=== PATIENT | male | born 1970 | race Caucasian/White ===

== ENCOUNTER 2017-03-24 05:43 | Emergency (ER) | payer MEDICAID ==
[~2017-03-24] VITALS: Ht 170.2 cm; Wt 75.7 kg
[~2017-03-24 05:43] MED LIST: IBUP-1482 PO
--- NOTE | 2017-03-24 05:59 | NUR ---
Pt c/o swelling at base of his right thumb, states he thought it was a spider bite at first, about 3 days ago, pain 8.5/10. Pt denies CP, SOB, dizziness, n/v, no other complaints, minor distress noted.
[2017-03-24 07:20] VITALS: BP 131/79
== END 2017-03-24 07:00 | disposition home or self-care (01) ==
LOC: ER 05:43
DX: L02.511 Cutaneous abscess of right hand (principal); I10 Essential (primary) hypertension; F19.10 Other psychoactive substance abuse, uncomplicated; Z88.0 Allergy status to penicillin
CPT/HCPCS: 10060; 99283; A4606; J3490 ×2; Z7610

== ENCOUNTER 2017-11-14 13:23 | Emergency (ER) | payer OTHER ==
[~2017-11-14] VITALS: Ht 170.2 cm; Wt 74.4 kg
[~2017-11-14 13:23] MED LIST changes: -IBUP-1482 PO; +IBUP-1957 PO
[2017-11-14 13:25] VITALS: BP 133/91
[2017-11-14] MEDS ORDERED: HYDROCODONE/APAP 5/325MG 1 EACH TABLET PO ONE (15:00)
--- NOTE | 2017-11-14 15:10 | NUR ---
Patient eloped from facility. ER MD notified.
== END 2017-11-14 16:05 | disposition left against medical advice (07) ==
LOC: ER 13:34
DX: S69.92XA Unspecified injury of left wrist, hand and finger(s), initial encounter (principal); I10 Essential (primary) hypertension; Z88.0 Allergy status to penicillin; X18.XXXA Contact with other hot metals, initial encounter; Y93.89 Activity, other specified; Y92.89 Other specified places as the place of occurrence of the external cause; Y99.0 Civilian activity done for income or pay
CPT/HCPCS: 73140-TC; A4606; Z7610

== ENCOUNTER 2018-06-17 10:17 | Emergency (ER) | payer OTHER, MEDICAID ==
[~2018-06-17] VITALS: Ht 170.2 cm; Wt 73.0 kg
[2018-06-17 10:25] VITALS: BP 135/71
[2018-06-17] MEDS ORDERED: predniSONE 10 MG TABLET PO ONE (11:00)
[2018-06-17] MEDS ORDERED: diphenhydrAMINE HCL 50 MG CAPSULE PO ONE (11:00)
[2018-06-17] MEDS ORDERED: predniSONE 20 MG TABLET ONE (11:11)
[2018-06-17] MEDS ORDERED: diphenhydrAMINE HCL 50 MG CAPSULE ONE (11:11)
== END 2018-06-17 11:34 ==
LOC: ER 10:18
DX: R21 Rash and other nonspecific skin eruption (principal); I10 Essential (primary) hypertension; F19.10 Other psychoactive substance abuse, uncomplicated; Z88.0 Allergy status to penicillin
CPT/HCPCS: 99283; A4606; J7512; Q0163; Z7610

== ENCOUNTER 2018-08-26 08:48 | Emergency (ER) | payer OTHER ==
[~2018-08-26] VITALS: Ht 167.6 cm; Wt 72.6 kg
[2018-08-26 08:52] VITALS: BP 145/81
--- NOTE | 2018-08-26 08:55 | NUR ---
SEEN AND EXAMINED BY DR. MADSEN.
[2018-08-26] MEDS ORDERED: KETOROLAC TROMETHAMINE INJ 30 MG/ML VIAL ONE (08:59)
[2018-08-26] MEDS ORDERED: ONDANSETRON 4 MG TAB.RAPDIS SL ONE (09:00)
[2018-08-26] MEDS ORDERED: KETOROLAC TROMETHAMINE INJ 60 MG/2 ML VIAL IM ONE (09:00)
[2018-08-26] MEDS ORDERED: ONDANSETRON 4 MG TAB.RAPDIS ONE (09:00)
--- NOTE | 2018-08-26 09:05 | NUR ---
URINAL GIVEN BUT UNABLE TO PROVIDE URINE SPECIMEN.
--- NOTE | 2018-08-26 09:05 | NUR ---
Tamara lomas in ED - 08/26/18 at 0906 by SO patient came in via ambulatory accompanied by PD from [facility] for clearance. On room air, breathing evenly and unlabored. kept comfortable, will continue to monitor accordingly.
[2018-08-26 09:43] LABS: APPEARANCE,URINE Clear (CLEAR); BILIRUBIN,URINE Negative (NEGATIVE); BLOOD, URINE Negative Ery/uL (NEGATIVE); COLOR,URINE Yellow (YELLOW); KETONES,URINE Negative (NEGATIVE); LEUKOCYTE ESTERASE ,URINE Negative (NEGATIVE); NITRITE, URINE Negative (NEGATIVE); PH,URINE 6.5 (5.0-8.0); PROTEIN,URINE Negative (NEGATIVE); UGLUCOSE Negative (NEGATIVE)
--- NOTE | 2018-08-26 10:01 | NUR ---
Patient discharged in custody in stable condition. Written and verbal after care instructions given. Patient verbalizes understanding of instruction.
== END 2018-08-26 10:03 ==
LOC: ER 08:52
DX: R10.12 Left upper quadrant pain (principal); R10.11 Right upper quadrant pain; R10.31 Right lower quadrant pain; R10.32 Left lower quadrant pain; I25.2 Old myocardial infarction; I10 Essential (primary) hypertension; Z88.0 Allergy status to penicillin
CPT/HCPCS: 81001; 96372; 99283; A4606; J1885; Q0162; 81000-TC

== ENCOUNTER 2019-01-27 15:07 | Emergency (ER) | payer OTHER ==
[~2019-01-27] VITALS: Ht 170.2 cm; Wt 83.9 kg
[2019-01-27 15:33] VITALS: BP 140/91
[2019-01-27] MEDS ORDERED: IBUPROFEN 600 MG TABLET PO ONE ×2 (16:00→16:07)
--- NOTE | 2019-01-27 16:09 | NUR ---
RADIOLOGY AT BEDSIDE FOR R HAND XRAY.
== END 2019-01-27 17:07 | disposition home or self-care (01) ==
LOC: ER 15:11
DX: M79.641 Pain in right hand (principal); I10 Essential (primary) hypertension; I25.2 Old myocardial infarction; Z88.0 Allergy status to penicillin; V19.88XA Pedal cyclist (driver) (passenger) injured in other specified transport accidents, initial encounter; Y93.55 Activity, bike riding; Y92.89 Other specified places as the place of occurrence of the external cause; Y99.8 Other external cause status
CPT/HCPCS: 73130-TC

== ENCOUNTER 2019-01-29 10:36 | Emergency (ER) | payer MEDICAID, OTHER ==
[~2019-01-29] VITALS: Ht 177.8 cm; Wt 78.9 kg
--- NOTE | 2019-01-29 10:42 | NUR ---
PT BIB SELF C/O R HAND SWELLING FOR 3 DAYS, +ABSCESS, PT IS AAOX4, NOT IN RESPIRATORY DISTRESS, HOOKED TO MONITOR, KEPT RESTED AND COMFORTABLE, WILL CONTINUE TO MONITOR.
--- NOTE | 2019-01-29 10:49 | NUR ---
AT BEDSIDE FOR EVAL.
[2019-01-29] MEDS ORDERED: VANCOMYCIN 1 GM in IV D5W 250 ML IV ONE (11:00)
[2019-01-29] MEDS ORDERED: LEVOFLOXACIN 750 MG /D5W 150ML 150 ML IV ONE (11:00)
--- NOTE | 2019-01-29 11:00 | NUR ---
IV LINE ESTABLISHED, BLOOD DRAWNED AND SENT TO LAB.
[2019-01-29 11:06] LABS: BASOPHILS # (AUTO) 0.1 /CMM (0.0-0.2); BASOPHILS % (AUTO) 0.7 % (0.0-2.0); EOSINOPHILS % (AUTO) 3.6 % (0.0-6.0); HEMATOCRIT 43 % (39-51); HEMOGLOBIN 14.2 g/dL (13.5-17.5); LYMPHOCYTES # (AUTO) 1.3 /CMM (0.8-4.8); LYMPHOCYTES % (AUTO) 17.1 % (20.0-44.0); MEAN CORPUSCULAR HGB CONC 33 g/dl (31.0-36.0); MEAN CORPUSCULAR VOLUME 87 fL (80-96); MONOCYTES # (AUTO) 0.9 /CMM (0.1-1.30); MONOCYTES % (AUTO) 11.3 % (2.0-12.0); NEUTROPHILS # (AUTO) 5.1 /CMM (1.8-8.9); NEUTROPHILS % (AUTO) 67.3 % (43.0-81.0); PLATELET COUNT (AUTO) 180 /CMM (150-450); RED BLOOD CELL COUNT(AUTO) 4.92 MIL/uL (4.5-6.0); WHITE BLOOD COUNT (AUTO) 7.6 K/uL (4.3-11.0)
--- NOTE | 2019-01-29 11:10 | NUR ---
NAIL MAKER AT BEDSIDE FOR XRAY.
[2019-01-29 11:12] LABS: CALCIUM, SERUM 8.5 mg/dL (8.5-10.1); CARBON DIOXIDE 28 mmol/L (21-32); CHLORIDE 104 mmol/L (98-107); CREATININE 0.9 mg/dL (0.6-1.3); GLUCOSE 129 mg/dL (74-106); POTASSIUM 3.8 mmol/L (3.5-5.1); SODIUM SERUM 139 mmol/L (136-145); UREA NITROGEN, BLOOD 9 mg/dL (7-18)
[2019-01-29 11:27] LABS: ALANINE AMINOTRANSFERASE 67 U/L (12-78); ALBUMIN 3.1 g/dL (3.4-5.0); ALKALINE PHOSPHATASE 65 U/L (46-116); ASPARTATE AMINOTRANSFERASE 28 U/L (15-37); BILIRUBIN,DIRECT 0.2 mg/dL (0.0-0.2); BILIRUBIN,TOTAL 0.5 mg/dL (0.2-1.0); TOTAL PROTEIN, SERUM 6.6 g/dL (6.4-8.2)
[2019-01-29] MEDS ORDERED: diphenhydrAMINE HCL 50 MG/ML VIAL ONE (11:41)
--- NOTE | 2019-01-29 11:45 | NUR ---
BENADRYL 25MG IVP GIVEN VERBAL ORDERED BY .
--- NOTE | 2019-01-29 12:44 | NUR ---
CALL FROM [facility],NO BED
--- NOTE | 2019-01-29 13:41 | NUR ---
CALLED [facility], NO HAND SURGEON
--- NOTE | 2019-01-29 13:42 | NUR ---
CALLED [facility], NO BEDS
[2019-01-29] MEDS ORDERED: ACETAMINOPHEN ES 500 MG TABLET ONE (13:43)
[2019-01-29] MEDS ORDERED: IBUPROFEN 600 MG TABLET PO ONE (13:43)
--- NOTE | 2019-01-29 13:46 | NUR ---
MOTRIN 600MG AND TYLENOL 1000MG PO GIVEN VERBAL ORDERED BY .
--- NOTE | 2019-01-29 13:54 | NUR ---
CALLED [facility] , FAXED FACE SHEET, MD NOTES, IMAGES, AND LABS. TRANSFER CENTER WILL CALL BACK WITH UP DATE.
--- NOTE | 2019-01-29 14:20 | NUR ---
CALLED [facility], NO BEDS
--- NOTE | 2019-01-29 18:16 | NUR ---
[employer]OTEL FRONT DESK CLERK FOR [facility] ([facility]) CALLED AND STATED THAT THEY ARE AT FULL CAPACITY AND ARE UNABLE TO ACCEPT PT.
--- NOTE | 2019-01-29 19:17 | NUR ---
REPORT GIVEN TO MARRY PERALTA FOR MARGARET, AWAITING INFO FOR PT TRANSFER TO HOSPITAL.
[2019-01-29] MEDS ORDERED: VANCOMYCIN HCL 1.25 GM in IV D5W 260 ML IV ONE (20:00)
[2019-01-29] MEDS ORDERED: VANCOMYCIN HCL 1 GM in IV D5W 260 ML IV ONE (20:30)
[2019-01-29] MEDS ORDERED: VANCOMYCIN 1 GM VIAL ONE (20:39)
[2019-01-29] MEDS ORDERED: KETOROLAC TROMETHAMINE INJ 30 MG/ML VIAL ONE (21:22)
--- NOTE | 2019-01-29 21:22 | NUR ---
VERBAL ORDER FROM ER MD FOR 30MG TORADOL IVP FOR PAIN IN R HAND
--- NOTE | 2019-01-29 22:26 | NUR ---
Patient is resting comfortably in bed with eyes closed. Easily aroused. VSS.
--- NOTE | 2019-01-30 01:37 | NUR ---
CALLED [facility] FOR TRANSFER. NO BEDS AVAILABLE AT THIS TIME
--- NOTE | 2019-01-30 01:39 | NUR ---
CALLED [facility], NO BED AVAILABLE AT THIS TIME
--- NOTE | 2019-01-30 01:42 | NUR ---
CALLED [facility], NO BEDS AVAILABLE AT THIS TIME
--- NOTE | 2019-01-30 01:44 | NUR ---
Patient is resting comfortably in bed with eyes closed. Easily aroused.
--- NOTE | 2019-01-30 03:18 | NUR ---
Patient is resting comfortably in bed with eyes closed. Easily aroused.
[2019-01-30] MEDS ORDERED: KETOROLAC TROMETHAMINE INJ 30 MG/ML VIAL IV ONE ×3 (05:30→09:30)
[2019-01-30] MEDS ORDERED: KETOROLAC TROMETHAMINE INJ 30 MG/ML VIAL ONE ×2 (05:57→08:30)
[2019-01-30] MEDS ORDERED: LEVOFLOXACIN 750 MG /D5W 150ML PIGGYBACK IV ONE (06:30)
[2019-01-30] MEDS ORDERED: VANCOMYCIN HCL 1.25 GM in IV D5W 250 ML IV ONE (07:23)
--- NOTE | 2019-01-30 07:25 | NUR ---
REPORT GIVEN TO MARRY PHAM FOR MARGARET
[2019-01-30] MEDS ORDERED: LEVOFLOXACIN 750 MG /D5W 150ML 750 MG in PREMIX 1 EA IV ONE ×2 (08:00→11:00)
--- NOTE | 2019-01-30 08:35 | NUR ---
PT C/O PAIN. DR HOLM MADE AWARE. VERBAL ORDER FOR TORADOL 30MG IVP. CARRIED OUT.
--- NOTE | 2019-01-30 08:45 | NUR ---
PT NOW AGITATED. WANTS TO LEAVE ED. Patient does not wish to proceed with medical care recommended by Dr. Armstrong. Patient given information related to possible complications, up to and including , which could occur as a result of leaving the hospital at this time. Patient verbalizes understanding of risks involved due to leaving against medical advice. Patient has signed AMA form.
[2019-01-30 09:22] VITALS: BP 142/84
== END 2019-01-30 09:23 | disposition left against medical advice (07) ==
LOC: ER 10:40
DX: M65.841 Other synovitis and tenosynovitis, right hand (principal); I10 Essential (primary) hypertension; F19.10 Other psychoactive substance abuse, uncomplicated; F15.10 Other stimulant abuse, uncomplicated; Z88.0 Allergy status to penicillin
CPT/HCPCS: 36415; 71045; 73130; 80048; 80076; 83605 ×2; 84145; 85025; 85730; 87040 ×2; 93005; 96365; 96366 ×2; 96368; 96375; 96376; 99284; A4216; J1200; J1885 ×3; J1956 ×2; J3370 ×2; J7060 ×2

== ENCOUNTER 2019-01-30 17:58 | Emergency (ER) | payer MEDICAID ==
[~2019-01-30] VITALS: Ht 167.6 cm; Wt 77.1 kg
[2019-01-30 18:07] VITALS: BP 148/93
--- NOTE | 2019-01-30 18:08 | NUR ---
CAME IN FOR "Hand swelling/cellulitis was here yesterday left this am tried to go to [place] but it was packed so I left" TO ER BED 6, HOOKED TO MONITOR, AWAITING MD JANE
--- NOTE | 2019-01-30 18:11 | NUR ---
DR STOVER AT BEDSIDE
[2019-01-30] MEDS ORDERED: IBUPROFEN 400 MG TABLET ONE (18:25)
[2019-01-30] MEDS ORDERED: LIDOCAINE /MPF 1% VIAL 5 ML VIAL ONE (18:25)
[2019-01-30] MEDS ORDERED: CEFTRIAXONE 1 G VIAL ONE (18:25)
[2019-01-30] MEDS ORDERED: HYDROCODONE/APAP 5/325MG 1 EACH TABLET ONE (18:26)
[2019-01-30] MEDS ORDERED: CEFTRIAXONE 1 G VIAL IM ONE (18:30)
[2019-01-30] MEDS ORDERED: IBUPROFEN 400 MG TABLET PO ONE (18:30)
[2019-01-30] MEDS ORDERED: HYDROCODONE/APAP 5/325MG 1 EACH TABLET PO ONE (18:30)
--- NOTE | 2019-01-30 18:47 | NUR ---
Patient does not wish to proceed with medical care recommended by Dr. Forte. Patient given information related to possible complications, up to and including , which could occur as a result of leaving the hospital at this time. Patient verbalizes understanding of risks involved due to leaving against medical advice. Patient has signed AMA form.
== END 2019-01-30 18:54 | disposition left against medical advice (07) ==
LOC: ER 17:58
DX: L03.113 Cellulitis of right upper limb (principal); I10 Essential (primary) hypertension; F19.10 Other psychoactive substance abuse, uncomplicated; Z59.0 Homelessness; Z88.0 Allergy status to penicillin
CPT/HCPCS: 96372; 99283; J0696; J3490

== ENCOUNTER 2020-03-27 16:48 | Emergency (ER) | payer OTHER ==
[~2020-03-27] VITALS: Ht 170.2 cm; Wt 77.1 kg
[2020-03-27 16:53] VITALS: BP 137/72
--- NOTE | 2020-03-27 17:03 | NUR ---
FRANCISCO J CABAN AT BEDSIDE FOR EVAL.
[2020-03-27] MEDS ORDERED: DOXYCYCLINE HYCLATE (100 MG) 100 MG TABLET ONE (17:11)
[2020-03-27] MEDS ORDERED: IBUPROFEN 600 MG TABLET ONE (17:11)
--- NOTE | 2020-03-27 17:22 | NUR ---
WOUND CLEANING AND DRESSING DONE BY FULFILLMENT REPRESENTATIVE.
--- NOTE | 2020-03-27 17:23 | NUR ---
Patient given written and verbal discharge instructions. Patient verbalizes understanding of instructions. Patient is ambulatory with steady gait. Refuses offer of correction placement. Patient given list of available shelters in surrounding area.
[2020-03-27] MEDS ORDERED: IBUPROFEN 600 MG TABLET PO ONE (17:30)
[2020-03-27] MEDS ORDERED: DOXYCYCLINE HYCLATE (100 MG) 100 MG TABLET PO ONE (17:30)
== END 2020-03-27 17:47 | disposition home or self-care (01) ==
LOC: ER 16:57
DX: L03.116 Cellulitis of left lower limb (principal); L03.115 Cellulitis of right lower limb; F12.90 Cannabis use, unspecified, uncomplicated; I10 Essential (primary) hypertension; I25.2 Old myocardial infarction; Z59.0 Homelessness; Z88.0 Allergy status to penicillin
CPT/HCPCS: 99283; A6403

== ENCOUNTER 2020-06-06 16:16 | Emergency (ER) | payer BC, MEDICAID, OTHER ==
[~2020-06-06] VITALS: Ht 172.7 cm; Wt 74.8 kg
[2020-06-06] MEDS ORDERED: TDAP [DIPH/PERTUSSIS/TET] 0.5 ML VIAL IM ONE ×2 (16:45→17:00)
[2020-06-06] MEDS ORDERED: ACETAMINOPHEN ES 500 MG TABLET ONE (16:45)
[2020-06-06] MEDS ORDERED: ACETAMINOPHEN 325 MG TABLET PO ONE (17:00)
[2020-06-06] MEDS ORDERED: LIDOCAINE /MPF 1% VIAL 5 ML VIAL ONE (17:37)
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
[2020-06-06 19:12] VITALS: BP 140/80
== END 2020-06-06 19:12 | disposition home or self-care (01) ==
LOC: ER 16:18
DX: S01.112A Laceration without foreign body of left eyelid and periocular area, initial encounter (principal); I10 Essential (primary) hypertension; I25.2 Old myocardial infarction; F15.10 Other stimulant abuse, uncomplicated; F17.200 Nicotine dependence, unspecified, uncomplicated; Z88.0 Allergy status to penicillin; Z60.2 Problems related to living alone; Y04.0XXA Assault by unarmed brawl or fight, initial encounter; Y93.89 Activity, other specified; Y92.89 Other specified places as the place of occurrence of the external cause; Y99.8 Other external cause status
CPT/HCPCS: 12011; 70450; 70486; 90471; 90715; 99285; J3490

== ENCOUNTER 2020-08-08 00:48 | Emergency (ER) | payer BC, OTHER ==
[~2020-08-08] VITALS: Ht 172.7 cm; Wt 77.1 kg
--- NOTE | 2020-08-08 01:25 | NUR ---
CALLED FOR TRIAGE , NO ANSWER
[2020-08-08 01:49] VITALS: BP 133/85
[2020-08-08] MEDS ORDERED: CLIN300C12 PO (01:53)
[2020-08-08] MEDS ORDERED: SULF1TAB48 PO (01:53)
--- NOTE | 2020-08-08 02:01 | NUR ---
Pt was seen and assessed by Dr. Armstrong. clear for d/c. Patient given Rx and written and verbal discharge instructions. Patient verbalizes understanding of instructions. Patient is ambulatory with steady gait. Refuses offer of penitentiary placement. Patient given list of available shelters in surrounding area. pt had proper clothing on upon discharge and was provided w/ snacks.
== END 2020-08-08 02:05 | disposition home or self-care (01) ==
LOC: ER 00:50
DX: L03.112 Cellulitis of left axilla (principal); I10 Essential (primary) hypertension; I25.2 Old myocardial infarction; Z88.0 Allergy status to penicillin; Z59.0 Homelessness

== ENCOUNTER 2020-08-12 16:23 | Emergency (ER) | payer OTHER ==
[~2020-08-12] VITALS: Ht 175.3 cm; Wt 80.7 kg
[~2020-08-12 16:23] MED LIST changes: +CLIN300C12 PO; +SULF1TAB48 PO
[2020-08-12 16:37] VITALS: BP 174/98
[2020-08-12] MEDS ORDERED: SULF1TAB48 PO (16:48)
[2020-08-12] MEDS ORDERED: CLIN300C12 PO (16:48)
[2020-08-12] MEDS ORDERED: IBUP-1958 PO (16:48)
[2020-08-12] MEDS ORDERED: CLINDAMYCIN HCL 150 MG CAPSULE PO ONE ×2 (16:51→17:00)
[2020-08-12] MEDS ORDERED: IBUPROFEN 400 MG TABLET ONE (16:51)
--- NOTE | 2020-08-12 16:52 | NUR ---
Patient given written and verbal discharge instructions. Patient verbalizes understanding of instructions. Patient is ambulatory with steady gait. Refuses offer of long-term placement. Patient given list of available shelters in surrounding area. Name band removed, all belongings with the patient, in proper clothing upon discharge
[2020-08-12] MEDS ORDERED: IBUPROFEN 400 MG TABLET PO ONE (17:00)
== END 2020-08-12 16:54 | disposition home or self-care (01) ==
LOC: ER 16:25
DX: L03.116 Cellulitis of left lower limb (principal); L03.115 Cellulitis of right lower limb; L03.114 Cellulitis of left upper limb; L03.113 Cellulitis of right upper limb; I10 Essential (primary) hypertension; F17.200 Nicotine dependence, unspecified, uncomplicated; Z76.0 Encounter for issue of repeat prescription; Z88.0 Allergy status to penicillin; Z59.0 Homelessness; Z79.899 Other long term (current) drug therapy

== ENCOUNTER 2020-10-13 23:05 | Emergency (ER) | payer MEDICAID, OTHER ==
[~2020-10-13] VITALS: Ht 170.2 cm; Wt 77.1 kg
[2020-10-13 23:05] VITALS: BP 160/96
[~2020-10-13 23:05] MED LIST changes: +IBUP-1958 PO
[2020-10-13] MEDS ORDERED: DOXY100C41 PO (23:40)
[2020-10-13] MEDS ORDERED: AZITHROMYCIN 250 MG TABLET ONE (23:44)
[2020-10-13] MEDS ORDERED: ONDANSETRON 4 MG TAB.RAPDIS ONE (23:44)
[2020-10-13] MEDS ORDERED: LIDOCAINE /MPF 1% VIAL 5 ML VIAL ONE (23:44)
[2020-10-13] MEDS ORDERED: CEFTRIAXONE 1 G VIAL ONE (23:44)
[2020-10-14] MEDS ORDERED: ONDANSETRON 4 MG TAB.RAPDIS SL ONE
[2020-10-14] MEDS ORDERED: AZITHROMYCIN 250 MG TABLET PO ONE
[2020-10-14] MEDS ORDERED: CEFTRIAXONE 1 G VIAL IM ONE
== END 2020-10-13 23:54 | disposition home or self-care (01) ==
LOC: ER 23:05
DX: A54.01 Gonococcal cystitis and urethritis, unspecified (principal); F17.210 Nicotine dependence, cigarettes, uncomplicated; I10 Essential (primary) hypertension; Z88.0 Allergy status to penicillin; Z59.0 Homelessness; Z79.899 Other long term (current) drug therapy
CPT/HCPCS: 96372; 99283; 99406; J0696; J3490; Q0162

== ENCOUNTER 2020-12-12 01:34 | Emergency (ER) | payer OTHER ==
[~2020-12-12] VITALS: Ht 180.3 cm; Wt 86.2 kg
[~2020-12-12 01:34] MED LIST changes: +DOXY-326 PO
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
[2020-12-12] MEDS ORDERED: HYDROCODONE/APAP 10/325MG TABLET PO ONE (02:00)
[2020-12-12] MEDS ORDERED: TDAP [DIPH/PERTUSSIS/TET] 0.5 ML VIAL IM ONE ×2 (02:00→02:05)
[2020-12-12] MEDS ORDERED: ONDANSETRON 4 MG TAB.RAPDIS SL ONE (02:00)
[2020-12-12] MEDS ORDERED: HYDROCODONE/APAP 10/325MG TABLET ONE (02:04)
[2020-12-12] MEDS ORDERED: ONDANSETRON 4 MG TAB.RAPDIS ONE (02:05)
[2020-12-12] MEDS ORDERED: SODIUM BICARBONATE 5 ML VIAL ONE (04:20)
[2020-12-12] MEDS ORDERED: LIDOCAINE 2%-EPI 1:100,000 30 ML VIAL ONE (04:21)
[2020-12-12] MEDS ORDERED: ONDA4TAB5 PO (04:25)
[2020-12-12] MEDS ORDERED: HYDR-3980 PO (04:25)
[2020-12-12] MEDS ORDERED: CEPH500C2 PO (04:25)
[2020-12-12] MEDS ORDERED: CEFTRIAXONE 1 G VIAL IM ONE (04:30)
--- NOTE | 2020-12-12 04:31 | NUR ---
PT ASLEEP, REMAINS ON MONITOR, AND PULSE OX.
[2020-12-12] MEDS ORDERED: LIDOCAINE /MPF 1% VIAL 5 ML VIAL ONE (04:40)
[2020-12-12] MEDS ORDERED: CEFTRIAXONE 1 G VIAL ONE (04:40)
--- NOTE | 2020-12-12 07:25 | NUR ---
GABRIELA CALLED [facility] [facility] [address] WILL BE DISPATCHED TO TAKE REPORT.
--- NOTE | 2020-12-12 10:10 | NUR ---
MEDICALL CLEARED. PT IS AAOX3, AMBULATORY W. STEADY GAIT. D/C IN STABLE CONDITION.
[2020-12-12 10:11] VITALS: BP 133/84
== END 2020-12-12 10:12 | disposition home or self-care (01) ==
LOC: ER 01:36
DX: S02.0XXA Fracture of vault of skull, initial encounter for closed fracture (principal); S02.19XA Other fracture of base of skull, initial encounter for closed fracture; S22.31XA Fracture of one rib, right side, initial encounter for closed fracture; S32.018A Other fracture of first lumbar vertebra, initial encounter for closed fracture; S32.028A Other fracture of second lumbar vertebra, initial encounter for closed fracture; S32.038A Other fracture of third lumbar vertebra, initial encounter for closed fracture; S01.01XA Laceration without foreign body of scalp, initial encounter; F17.210 Nicotine dependence, cigarettes, uncomplicated; F15.10 Other stimulant abuse, uncomplicated; I10 Essential (primary) hypertension; E11.9 Type 2 diabetes mellitus without complications; I25.2 Old myocardial infarction; Z88.0 Allergy status to penicillin; Z79.899 Other long term (current) drug therapy; Z59.0 Homelessness; Y08.89XA Assault by other specified means, initial encounter; Y93.89 Activity, other specified; Y92.89 Other specified places as the place of occurrence of the external cause; Y99.8 Other external cause status
CPT/HCPCS: 12002; 70450; 72125; 72128; 72131; 90471; 90715; 96372; 99285; 99406; J0696; J3490 ×3; L0172; Q0162

== ENCOUNTER 2021-02-16 09:24 | Emergency (ER) | payer OTHER ==
[~2021-02-16] VITALS: Ht 172.7 cm; Wt 75.7 kg
[~2021-02-16 09:24] MED LIST changes: +CEPH500C2 PO; +HYDR-3980 PO; +ONDA4TAB5 PO
--- NOTE | 2021-02-16 09:36 | NUR ---
TO ER BED 7, BIB PD FOR MEDICAL CLEARANCE C/O DIARRHEA, NAUSEA X 1 WEEK, A&OX4, BREATHING EVEN AND UNLABORED, PD AT BEDSIDE
[2021-02-16] MEDS: IV NS 0.9% 1,000 ML BAG IV ONE (10:00)
--- NOTE | 2021-02-16 10:01 | NUR ---
SEEN BY , SALINE LOCK ESTABLISHED, BLOOD DRAWN
[2021-02-16 10:33] LABS: BASOPHILS # (AUTO) 0.1 K/uL (0.0-0.2); BASOPHILS % (AUTO) 0.9 % (0.0-2.0); EOSINOPHILS % (AUTO) 7.7 % (0.0-6.0); HEMATOCRIT 48 % (39-51); HEMOGLOBIN 15.6 g/dL (13.5-17.5); LYMPHOCYTES # (AUTO) 1.4 K/uL (0.8-4.8); LYMPHOCYTES % (AUTO) 22.3 % (20.0-44.0); MEAN CORPUSCULAR HGB CONC 33 g/dl (31.0-36.0); MEAN CORPUSCULAR VOLUME 85 fL (80-96); MONOCYTES # (AUTO) 0.5 K/uL (0.1-1.30); MONOCYTES % (AUTO) 8.2 % (2.0-12.0); NEUTROPHILS # (AUTO) 3.8 K/uL (1.8-8.9); NEUTROPHILS % (AUTO) 60.9 % (43.0-81.0); PLATELET COUNT (AUTO) 286 K/uL (150-450); WHITE BLOOD COUNT (AUTO) 6.2 K/uL (4.3-11.0)
[2021-02-16 10:44] LABS: CALCIUM, SERUM 9.3 mg/dL (8.5-10.1); CREATININE 0.8 mg/dL (0.6-1.3); POTASSIUM 4.5 mmol/L (3.5-5.1)
[2021-02-16 10:51] LABS: ALBUMIN 3.2 g/dL (3.4-5.0); BILIRUBIN,DIRECT 0.1 mg/dL (0.0-0.2); BILIRUBIN,TOTAL 0.3 mg/dL (0.2-1.0); TOTAL PROTEIN, SERUM 7.3 g/dL (6.4-8.2)
[2021-02-16] MEDS ORDERED: ONDA4TAB5 PO (11:30)
[2021-02-16] MEDS ORDERED: ONDANSETRON HCL/PF 4 MG/2 ML VIAL IV ONE (11:30)
[2021-02-16] MEDS ORDERED: CIPR500T5 PO (11:30)
[2021-02-16 11:40] VITALS: BP 138/92
--- NOTE | 2021-02-16 11:40 | NUR ---
IV removed. Catheter intact and site benign. Pressure and 4x4 applied to site. No bleeding noted.Patient discharged to home in stable condition. Written and verbal after care instructions given. Patient verbalizes understanding of instruction.
== END 2021-02-16 11:40 ==
LOC: ER 09:30
DX: R19.7 Diarrhea, unspecified (principal); R11.0 Nausea; I10 Essential (primary) hypertension; E11.9 Type 2 diabetes mellitus without complications; F10.10 Alcohol abuse, uncomplicated; F17.200 Nicotine dependence, unspecified, uncomplicated; Y90.9 Presence of alcohol in blood, level not specified; Z86.19 Personal history of other infectious and parasitic diseases; Z88.0 Allergy status to penicillin; Z59.0 Homelessness; Z79.899 Other long term (current) drug therapy
CPT/HCPCS: 36415; 80048; 80076; 83690; 85025; 96360; 99283; J7030

== ENCOUNTER 2021-09-29 16:33 | Emergency (ER) | payer OTHER ==
[~2021-09-29] VITALS: Ht 170.2 cm; Wt 77.1 kg
[~2021-09-29 16:33] MED LIST changes: +CIPR500T5 PO
[2021-09-29 16:40] VITALS: BP 136/88
--- NOTE | 2021-09-29 16:47 | NUR ---
URINE SPECIMEN SENT TO LAB
[2021-09-29] MEDS ORDERED: AZITHROMYCIN 250 MG TABLET PO ONE (17:00)
[2021-09-29] MEDS ORDERED: GENTAMICIN 80 MG/2 ML VIAL IM ONE (17:00)
--- NOTE | 2021-09-29 17:00 | NUR ---
Gentamicin 80mg/2ml gievn IM and tolerated well, no reaction noted.
[2021-09-29] MEDS ORDERED: AZITHROMYCIN 250 MG TABLET ONE (17:01)
[2021-09-29] MEDS ORDERED: GENTAMICIN 80 MG/2 ML VIAL ONE (17:02)
== END 2021-09-29 17:46 | disposition home or self-care (01) ==
LOC: ER 16:38
DX: A63.8 Other specified predominantly sexually transmitted diseases (principal); F17.200 Nicotine dependence, unspecified, uncomplicated; Z86.73 Personal history of transient ischemic attack (TIA), and cerebral infarction without residual deficits; Z86.19 Personal history of other infectious and parasitic diseases; Z88.0 Allergy status to penicillin; Z59.00 Homelessness unspecified; Z79.1 Long term (current) use of non-steroidal anti-inflammatories (NSAID); Z79.891 Long term (current) use of opiate analgesic; Z79.899 Other long term (current) drug therapy
CPT/HCPCS: 87491; 87591; 96372; 99284; J1580

== ENCOUNTER 2022-03-01 14:42 | Emergency (ER) | payer OTHER ==
[~2022-03-01] VITALS: Ht 170.2 cm; Wt 80.7 kg
[2022-03-01] MEDS ORDERED: TDAP [DIPH/PERTUSSIS/TET] 0.5 ML VIAL IM ONE ×2 (15:30→16:37)
[2022-03-01] MEDS ORDERED: ACETAMINOPHEN 325 MG TABLET PO ONE (15:30)
[2022-03-01] MEDS ORDERED: IV NS 0.9% 1,000 ML IV ONE (15:30)
[2022-03-01] MEDS ORDERED: ASPIRIN 325 MG TABLET PO ONE (15:30)
[2022-03-01 16:05] LABS: BASOPHILS % (AUTO) 0.1 % (0.0-2.0); EOSINOPHILS % (AUTO) 2.1 % (0.0-6.0); HEMATOCRIT 50 % (39-51); HEMOGLOBIN 15.9 g/dL (13.5-17.5); LYMPHOCYTES # (AUTO) 1.2 K/uL (0.8-4.8); MEAN CORPUSCULAR HGB CONC 32 g/dl (31.0-36.0); MEAN CORPUSCULAR VOLUME 87 fL (80-96); MONOCYTES # (AUTO) 0.5 K/uL (0.1-1.30); MONOCYTES % (AUTO) 4.6 % (2.0-12.0); NEUTROPHILS # (AUTO) 8.9 K/uL (1.8-8.9); NEUTROPHILS % (AUTO) 82.2 % (43.0-81.0); PLATELET COUNT (AUTO) 203 K/uL (150-450); RED BLOOD CELL COUNT(AUTO) 5.76 MIL/uL (4.5-6.0); WHITE BLOOD COUNT (AUTO) 10.8 K/uL (4.3-11.0)
[2022-03-01 16:15] LABS: CARBON DIOXIDE 28 mmol/L (21-32); CHLORIDE 107 mmol/L (98-107); CREATININE 1.1 mg/dL (0.6-1.3); GLUCOSE 139 mg/dL (74-106); POTASSIUM 3.9 mmol/L (3.5-5.1); SODIUM SERUM 141 mmol/L (136-145); UREA NITROGEN, BLOOD 15 mg/dL (7-18)
[2022-03-01 16:20] LABS: ALANINE AMINOTRANSFERASE 81 U/L (12-78); ALBUMIN 3.3 g/dL (3.4-5.0); ALCOHOL, BLOOD < 3 mg/dL (0-0); ALKALINE PHOSPHATASE 75 U/L (46-116); ASPARTATE AMINOTRANSFERASE 40 U/L (15-37); BILIRUBIN,DIRECT 0.1 mg/dL (0.0-0.2); BILIRUBIN,TOTAL 0.4 mg/dL (0.2-1.0); TOTAL PROTEIN, SERUM 6.9 g/dL (6.4-8.2)
[2022-03-01 16:21] LABS: ACETAMINOPHEN 0 ug/ml (10-30)
[2022-03-01] MEDS ORDERED: ACETAMINOPHEN 325 MG TABLET ONE (16:37)
[2022-03-01] MEDS ORDERED: ASPIRIN 325 MG TABLET ONE (16:37)
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
--- NOTE | 2022-03-01 17:02 | NUR ---
Patient discharged to home in stable condition. Written and verbal after care instructions given. Patient verbalizes understanding of instruction.
--- NOTE | 2022-03-01 17:02 | NUR ---
Patient given written and verbal discharge instructions. Patient verbalizes understanding of instructions. Patient is ambulatory with steady gait. Refuses offer of snf placement. Patient given list of available shelters in surrounding area. name band removed. all belongings given back to patient. in proper clothing upon discharge
[2022-03-01 17:07] VITALS: BP 142/87
== END 2022-03-01 17:07 | disposition home or self-care (01) ==
LOC: ER 14:44
DX: F14.90 Cocaine use, unspecified, uncomplicated (principal); F17.200 Nicotine dependence, unspecified, uncomplicated; Z88.0 Allergy status to penicillin; Z59.00 Homelessness unspecified; Z79.899 Other long term (current) drug therapy
CPT/HCPCS: 36415; 80048-TC; 80076-TC; 84484-TC; 85025-TC; 90715; G0480

== ENCOUNTER 2022-05-31 16:30 | Emergency (ER) | payer OTHER ==
[~2022-05-31] VITALS: Ht 175.3 cm; Wt 77.1 kg
--- NOTE | 2022-05-31 16:50 | NUR ---
C/O LEFT LOWER LEG ABSCESS X 1 WEEK
--- NOTE | 2022-05-31 16:56 | NUR ---
TO ER BED 13 FOR MD JANE
[2022-05-31] MEDS ORDERED: CLIN300C12 PO (17:22)
[2022-05-31] MEDS ORDERED: CLINDAMYCIN HCL 150 MG CAPSULE ONE (17:25)
[2022-05-31] MEDS ORDERED: CLINDAMYCIN HCL 150 MG CAPSULE PO ONE (17:30)
--- NOTE | 2022-05-31 17:40 | NUR ---
Tamara lomas in ED - 05/31/22 at 1744 by LORENZO Patient discharged to home in stable condition. Written and verbal after care instructions given. Patient verbalizes understanding of instruction.
--- NOTE | 2022-05-31 17:44 | NUR ---
Patient discharged in stable condition. Written and verbal after care instructions given. Patient verbalizes understanding of instruction.
[2022-05-31 17:45] VITALS: BP 145/80
== END 2022-05-31 17:46 | disposition home or self-care (01) ==
LOC: ER 16:34
DX: L03.116 Cellulitis of left lower limb (principal); F19.10 Other psychoactive substance abuse, uncomplicated; Z86.73 Personal history of transient ischemic attack (TIA), and cerebral infarction without residual deficits; Z88.0 Allergy status to penicillin; F17.200 Nicotine dependence, unspecified, uncomplicated; Z59.00 Homelessness unspecified; Z86.19 Personal history of other infectious and parasitic diseases
CPT/HCPCS: 99283; A6403

== ENCOUNTER 2022-10-07 10:27 | Emergency (ER) | payer OTHER ==
[~2022-10-07] VITALS: Ht 170.2 cm; Wt 81.6 kg
--- NOTE | 2022-10-07 10:35 | NUR ---
PENILE PAIN, RASH X 5 DAYS, REQUESTING ANTIBIOTICS. PAIN 7/10 ON PAIN SCALE. VITALS ARE WITHIN NORMAL LIMITS. AWAITING MD JANE.
[2022-10-07] MEDS ORDERED: SULFAMETH/TRIMETH 800/160 MG 1 UDTAB TABLET PO ONE (11:00)
[2022-10-07] MEDS ORDERED: AZITHROMYCIN 250 MG TABLET PO ONE (11:00)
[2022-10-07] MEDS ORDERED: AZITHROMYCIN 250 MG TABLET ONE ×2 (11:02→11:04)
[2022-10-07] MEDS ORDERED: SULFAMETH/TRIMETH 800/160 MG 1 UDTAB TABLET ONE (11:02)
[2022-10-07] MEDS ORDERED: MUPI22OI7 TP (11:18)
[2022-10-07] MEDS ORDERED: SULF1TAB48 PO (11:18)
[2022-10-07 11:39] VITALS: BP 152/84
== END 2022-10-07 11:40 | disposition home or self-care (01) ==
LOC: ER 10:31
DX: N48.5 Ulcer of penis (principal); F17.200 Nicotine dependence, unspecified, uncomplicated; Z88.0 Allergy status to penicillin; Z59.00 Homelessness unspecified

== ENCOUNTER 2022-10-28 16:35 | Emergency (ER) | payer OTHER ==
[~2022-10-28] VITALS: Ht 172.7 cm; Wt 77.1 kg
[~2022-10-28 16:35] MED LIST changes: +MUPI22OI7 TP
[2022-10-28 17:15] VITALS: BP 152/78
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
[2022-10-28] MEDS ORDERED: DOXY100T2 PO (17:28)
--- NOTE | 2022-10-28 17:32 | NUR ---
Patient discharged to home in stable condition. Written and verbal after care instructions given. Patient verbalizes understanding of instruction.
== END 2022-10-28 17:33 | disposition home or self-care (01) ==
LOC: ER 16:37
DX: N48.22 Cellulitis of corpus cavernosum and penis (principal); I21.4 Non-ST elevation (NSTEMI) myocardial infarction; F17.200 Nicotine dependence, unspecified, uncomplicated; Z88.0 Allergy status to penicillin; Z59.00 Homelessness unspecified; Z79.899 Other long term (current) drug therapy

== ENCOUNTER 2022-11-01 17:09 | Emergency (ER) | payer OTHER ==
[~2022-11-01] VITALS: Ht 172.7 cm; Wt 79.4 kg
[~2022-11-01 17:09] MED LIST changes: +DOXY100T2 PO
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
[2022-11-01] MEDS ORDERED: BACI3.5O23 EXT (17:38)
[2022-11-01] MEDS ORDERED: DOXY100C2 PO (17:38)
--- NOTE | 2022-11-01 17:47 | NUR ---
Patient discharged to home in stable condition. Written and verbal after care instructions given. Patient verbalizes understanding of instruction.
[2022-11-01 17:49] VITALS: BP 131/81
== END 2022-11-01 17:50 | disposition home or self-care (01) ==
LOC: ER 17:17
DX: R21 Rash and other nonspecific skin eruption (principal); F17.200 Nicotine dependence, unspecified, uncomplicated; Z59.00 Homelessness unspecified; Z79.899 Other long term (current) drug therapy; Z88.0 Allergy status to penicillin

== ENCOUNTER 2024-01-01 21:35 | Emergency (ER) | payer OTHER ==
[~2024-01-01] VITALS: Ht 170.2 cm; Wt 77.1 kg
[~2024-01-01 21:35] MED LIST changes: +ACET-2605 PO; +BACI3.5O23 EXT; +DOXY100C2 PO; +IBUP-1955 PO
[2024-01-01] MEDS ORDERED: methylPREDNISolone SOD SUCC 125 MG/2ML VIAL ONE (21:57)
[2024-01-01] MEDS ORDERED: diphenhydrAMINE HCL 50 MG/ML VIAL ONE (21:57)
[2024-01-01] MEDS ORDERED: FAMOTIDINE/PF INJ 20 MG/2 ML VIAL IV ONE (21:57)
[2024-01-01] MEDS: methylPREDNISolone SOD SUCC 125 MG/2ML VIAL IV ONE (22:00)
[2024-01-01] MEDS: IV NS 0.9% 1,000 ML BAG IV ONE (22:00)
[2024-01-01] MEDS: diphenhydrAMINE HCL 50 MG/ML VIAL IV ONE (22:00)
[2024-01-01 22:02] VITALS: TEMP 98.4
[2024-01-01] MEDS: FAMOTIDINE/PF INJ 20 MG/2 ML VIAL IV ONE (22:02)
[2024-01-01] MEDS: diphenhydrAMINE HCL 25 MG CAPSULE PO ONE (22:10)
[2024-01-01] MEDS ORDERED: diphenhydrAMINE HCL 25 MG CAPSULE ONE (22:13)
[2024-01-01 23:53] VITALS: BP 153/100; O2SAT 98
== END 2024-01-01 23:53 | disposition home or self-care (01) ==
LOC: ER 21:37
DX: L50.9 Urticaria, unspecified (principal); T78.1XXA Other adverse food reactions, not elsewhere classified, initial encounter; F15.10 Other stimulant abuse, uncomplicated; F17.200 Nicotine dependence, unspecified, uncomplicated; F19.10 Other psychoactive substance abuse, uncomplicated; Z88.0 Allergy status to penicillin; Z91.010 Allergy to peanuts; Z59.00 Homelessness unspecified; X58.XXXA Exposure to other specified factors, initial encounter
CPT/HCPCS: 99284; 96374; 96375; 96361; Q0163; J1200; J3490; J2919; J7030

== ENCOUNTER 2024-01-15 12:26 | Emergency (ER) | payer OTHER ==
[~2024-01-15] VITALS: Ht 170.2 cm; Wt 77.1 kg
[2024-01-15 12:26] VITALS: BP 134/75; TEMP 98.4; O2SAT 98
[2024-01-15 13:33] LABS: BASOPHILS % (AUTO) 0.3 % (0.0-2.0); EOSINOPHILS # (AUTO) 0.1 K/uL (0.0-0.7); EOSINOPHILS % (AUTO) 1.1 % (0.0-6.0); HEMATOCRIT 48 % (39-51); HEMOGLOBIN 15.6 g/dL (13.5-17.5); LYMPHOCYTES # (AUTO) 1.1 K/uL (0.8-4.8); LYMPHOCYTES % (AUTO) 11.1 % (20.0-44.0); MEAN CORPUSCULAR HEMOGLOBIN 27 PG (26.0-33.0); MEAN CORPUSCULAR HGB CONC 32 g/dl (31.0-36.0); MEAN CORPUSCULAR VOLUME 84 fL (80-96); MONOCYTES # (AUTO) 0.5 K/uL (0.1-1.30); MONOCYTES % (AUTO) 5.4 % (2.0-12.0); NEUTROPHILS # (AUTO) 7.9 K/uL (1.8-8.9); NEUTROPHILS % (AUTO) 82.1 % (43.0-81.0); PLATELET COUNT (AUTO) 213 K/uL (150-450); RED BLOOD CELL COUNT(AUTO) 5.72 MIL/uL (4.5-6.0); RED CELL DISTRIBUTION WIDTH 15.6 % (11.5-15.0); WHITE BLOOD COUNT (AUTO) 9.6 K/uL (4.3-11.0)
[2024-01-15] MEDS: dexaMETHasone SOD PHOSPHATE 10 MG/ML VIAL IV ONE (13:36)
[2024-01-15] MEDS ORDERED: dexaMETHasone SOD PHOSPHATE 1 ML ONE (13:37)
[2024-01-15 13:42] LABS: CALCIUM, SERUM 9.1 mg/dL (8.5-10.1); CREATININE 1.2 mg/dL (0.6-1.3); POTASSIUM 4.7 mmol/L (3.5-5.1)
[2024-01-15 13:48] LABS: ALBUMIN 3.8 g/dL (3.4-5.0); BILIRUBIN,TOTAL 0.7 mg/dL (0.2-1.0); TOTAL PROTEIN, SERUM 7.3 g/dL (6.4-8.2)
[2024-01-15] MEDS ORDERED: DIPH25TA62 PO (14:03)
== END 2024-01-15 14:11 | disposition home or self-care (01) ==
LOC: ER 12:35
DX: L29.9 Pruritus, unspecified (principal); F19.10 Other psychoactive substance abuse, uncomplicated; F17.200 Nicotine dependence, unspecified, uncomplicated; Z79.1 Long term (current) use of non-steroidal anti-inflammatories (NSAID); Z79.891 Long term (current) use of opiate analgesic; Z79.899 Other long term (current) drug therapy; Z59.00 Homelessness unspecified; Z88.0 Allergy status to penicillin
CPT/HCPCS: 99283; 96374; 85025; 36415; 80053; J1100

== ENCOUNTER 2024-03-10 15:34 | Emergency (ER) | payer OTHER ==
[~2024-03-10] VITALS: Ht 170.2 cm; Wt 77.1 kg
[~2024-03-10 15:34] MED LIST changes: +DIPH25TA62 PO
[2024-03-10 15:41] VITALS: BP 140/75; TEMP 98.3; O2SAT 98
[2024-03-10] MEDS ORDERED: CLIN300C12 PO (16:00)
[2024-03-10] MEDS ORDERED: TDAP [DIPH/PERTUSSIS/TET] 0.5 ML VIAL IM ONE (16:00)
== END 2024-03-10 16:15 | disposition home or self-care (01) ==
LOC: ER 15:36
DX: S80.812A Abrasion, left lower leg, initial encounter (principal); L03.116 Cellulitis of left lower limb; F19.10 Other psychoactive substance abuse, uncomplicated; I25.2 Old myocardial infarction; F17.200 Nicotine dependence, unspecified, uncomplicated; F15.10 Other stimulant abuse, uncomplicated; Z88.0 Allergy status to penicillin; Z91.010 Allergy to peanuts; Z60.2 Problems related to living alone; X58.XXXA Exposure to other specified factors, initial encounter; Y93.89 Activity, other specified; Y92.89 Other specified places as the place of occurrence of the external cause; Y99.8 Other external cause status

== ENCOUNTER 2024-10-23 04:36 | Emergency (ER) | payer OTHER ==
[~2024-10-23] VITALS: Ht 172.7 cm; Wt 77.1 kg
[2024-10-23] MEDS ORDERED: DOXY-326 PO (06:19)
[2024-10-23] MEDS ORDERED: CEFTRIAXONE 500 MG VIAL ONE (06:25)
[2024-10-23] MEDS ORDERED: DOXYCYCLINE HYCLATE (100 MG) 100 MG TABLET ONE (06:25)
[2024-10-23] MEDS: DOXYCYCLINE HYCLATE (100 MG) 100 MG TABLET PO ONE (06:40)
[2024-10-23] MEDS: CEFTRIAXONE 500 MG VIAL IM ONE (06:40)
[2024-10-23 06:42] VITALS: BP 108/75; TEMP 98.2; O2SAT 98
[2024-10-23 06:53] LABS: APPEARANCE,URINE CLEAR (CLEAR); BILIRUBIN,URINE NEGATIVE (NEGATIVE); BLOOD, URINE NEGATIVE Ery/uL (NEGATIVE); COLOR,URINE YELLOW (YELLOW); KETONES,URINE NEGATIVE (NEGATIVE); LEUKOCYTE ESTERASE ,URINE NEGATIVE (NEGATIVE); NITRITE, URINE NEGATIVE (NEGATIVE); PROTEIN,URINE NEGATIVE (NEGATIVE); UGLUCOSE NEGATIVE (NEGATIVE); UROBILINOGEN,URINE 0.2 EU/dL (0.2)
[2024-10-25 13:12] LABS: CHLAMYDIA TRACHOMATIS NAA Negative (Negative); NEISSERIA GONORRHOEAE NAA Negative (Negative)
== END 2024-10-23 06:42 | disposition home or self-care (01) ==
LOC: ER 04:45
DX: N34.2 Other urethritis (principal); F17.200 Nicotine dependence, unspecified, uncomplicated; F19.11 Other psychoactive substance abuse, in remission; I25.2 Old myocardial infarction; Z59.00 Homelessness unspecified; Z86.19 Personal history of other infectious and parasitic diseases; Z88.0 Allergy status to penicillin; Z60.2 Problems related to living alone; Z79.899 Other long term (current) drug therapy
CPT/HCPCS: 99283; 96372; 81003; 87491; 87591; J0696